=== PATIENT | female | born 1990 | race Caucasian/White ===

== ENCOUNTER → 2017-11-22 10:04 | Outpatient (CLI) | payer MEDICAID, SELFPAY ==
[2017-11-22 10:39] LABS: Hemoglobin 12.1 g/dl (12.0-15.0); Mean Corp Hgb Conc 33.6 g/gl (32-36); Mean Corpuscular Hgb 31.3 pg (27.0-32.0); Mean Corpuscular Volume 93.3 fL (81-99); Platelet Count 227 K/mm3 (150-450); RBC Distribution Width CV 13.9 % (11.6-14.6); RBC Distribution Width SD 46.4 fl (35.1-43.9); Red Blood Count 3.86 M/mm3 (4.2-5.4); White Blood Count 11.6 K/mm3 (4.4-11.0)
[2017-11-22 10:40] LABS: Scan Indicated on CBC? Y/N NO
[2017-11-22 10:56] LABS: Glucose Challenge Gest 1H 50g 157 mg/dL (70-140)
== END ==
PROVIDERS: Visit Provider Obstetrics & Gynecology
DX: Z34.82 Encounter for supervision of other normal pregnancy, second trimester (principal)
CPT/HCPCS: 36415; 82950; 85027

== ENCOUNTER → 2017-11-29 08:51 | Outpatient (CLI) | payer MEDICAID, SELFPAY ==
[2017-11-29 10:16] LABS: Glucose GTT-Gestation. Fasting 82 mg/dL (<105)
[2017-11-29 11:30] LABS: Glucose GTT-Gestational 1 Hr 156 mg/dL (<190)
[2017-11-29 11:59] LABS: Glucose GTT-Gestational 2 Hr 120 mg/dL (<165)
[2017-11-29 12:32] LABS: Glucose GTT-Gestational 3 Hr 102 L (<145)
== END ==
PROVIDERS: Family Provider Family Medicine; PCP Family Medicine; Visit Provider Obstetrics & Gynecology
DX: O24.912 Unspecified diabetes mellitus in pregnancy, second trimester (principal); Z3A.00 Weeks of gestation of pregnancy not specified
CPT/HCPCS: 36415; 82951; 82952

== ENCOUNTER → 2018-01-22 16:42 | Outpatient (CLI) | payer MEDICAID, SELFPAY ==
[2018-01-22 19:44] LABS: Group B Strep DNA By PCR Negative (Negative); Internal Control PASS; Probe Check PASS; Specimen Processing Control PASS
== END ==
PROVIDERS: Visit Provider Obstetrics & Gynecology
DX: Z36.85 Encounter for antenatal screening for Streptococcus B (principal)
CPT/HCPCS: 87081; 87653

== ENCOUNTER 2018-02-12 05:30 | Inpatient (IN) | payer MEDICAID, SELFPAY ==
[2018-02-06 09:14] VITALS: BMI 42.0
--- NOTE | 2018-02-12 05:30 | DT_ITS ---
This patient was seen during an EMR downtime February 12, 2018 - February 19, 2018. This patient may have a combination of paper and electronic documentation or all paper documentation. All documentation is viewable within the e-chart portion of [facility] for each patient visit.
[2018-02-15 17:03] LABS: Hematocrit 39.8 % (37-47); Hemoglobin 13.4 g/dl (12.0-15.0); Mean Corp Hgb Conc 33.7 g/gl (32-36); Mean Corpuscular Hgb 31.5 pg (27.0-32.0); Mean Corpuscular Volume 93.4 fL (81-99); Mean Platelet Vol. 11.3 fl (6.2-12.0); Platelet Count 183 K/mm3 (150-450); RBC Distribution Width CV 14.2 % (11.6-14.6); Red Blood Count 4.26 M/mm3 (4.2-5.4); Scan Indicated on CBC? Y/N NO; White Blood Count 12.4 K/mm3 (4.4-11.0)
[2018-02-15 17:04] LABS: International Normalized Ratio 0.9; Partial Thromboplast Time 28.5 Seconds (24.1-36.2); Prothrombin Time (Protime)PT. 11.8 SECONDS (11.7-14.9)
[2018-02-21 20:10] LABS: Hematocrit 36.2 % (37-47); Hemoglobin 11.8 g/dl (12.0-15.0); Mean Corp Hgb Conc 32.6 g/gl (32-36); Mean Corpuscular Hgb 30.9 pg (27.0-32.0); Mean Corpuscular Volume 94.8 fL (81-99); Mean Platelet Vol. 11.4 fl (6.2-12.0); Platelet Count 182 K/mm3 (150-450); RBC Distribution Width CV 14.4 % (11.6-14.6); RBC Distribution Width SD 47.4 fl (35.1-43.9); Red Blood Count 3.82 M/mm3 (4.2-5.4); Scan Indicated on CBC? Y/N NO; White Blood Count 14.9 K/mm3 (4.4-11.0)
--- NOTE | 2018-02-22 13:46 | CASEMGMT ---
Social Work Note Labor and Delivery Unit Hospital downtime protocols in place during this patient's hospital stay. A social work assessment was completed. Assessment handwritten as per downtime protocols, sent to medical records to be scanned into patient's chart. -MARY Conway, GAGE DESIGNER
== END 2018-02-14 10:05 | disposition home or self-care (01) | DRG 371 ==
PROVIDERS: Admitting Provider Obstetrics & Gynecology; Family Provider Family Medicine; PCP Family Medicine; Visit Provider Obstetrics & Gynecology
PROC: 10D00Z1 Extraction of Products of Conception, Low, Open Approach (ICD-10-PCS; CPT 59514; principal; 2018-02-12 07:15)
DX: O34.211 Maternal care for low transverse scar from previous cesarean delivery (principal); Z3A.39 39 weeks gestation of pregnancy; Z37.0 Single live birth
CPT/HCPCS: 59025; 59050; 85027; 85610; 85730; 86850; 86900; 87081; 87653; 99218; J7120; A4216; G0378; J2405

== ENCOUNTER → 2018-02-27 15:40 | Outpatient (CLI) | payer MEDICAID, SELFPAY | PROVIDERS: Visit Provider Obstetrics & Gynecology | DX: R19.7 Diarrhea, unspecified (principal) | CPT/HCPCS: 87493 ==

== ENCOUNTER → 2018-04-06 14:47 | Outpatient (CLI) | payer MEDICAID, SELFPAY ==
[2018-04-06 16:31] LABS: Progesterone Level 1.03 ng/mL (See Comment)
[2018-04-06 16:39] LABS: Pregnancy, Serum, hCG Quali. NEGATIVE Negative (0-9 Nonpreg)
== END ==
PROVIDERS: Visit Provider Obstetrics & Gynecology
DX: Z30.430 Encounter for insertion of intrauterine contraceptive device (principal)
CPT/HCPCS: 36415; 84144; 84703

== ENCOUNTER → 2018-04-09 16:16 | Outpatient (CLI) | payer MEDICAID, SELFPAY ==
[2018-04-09 19:56] LABS: Chlamydia Trachomatis by PCR Negative (Negative); Neisserai gonorrhoeae by PCR Negative (Negative); Probe Check PASS; Sample Adequacy Control PASS; Specimen Processing Control PASS
== END ==
PROVIDERS: Family Provider Family Medicine; PCP Family Medicine; Visit Provider Obstetrics & Gynecology
DX: Z11.3 Encounter for screening for infections with a predominantly sexual mode of transmission (principal)
CPT/HCPCS: 87491; 87591

== ENCOUNTER → 2018-06-01 14:44 | Outpatient (CLI) | payer MEDICAID, SELFPAY ==
[2018-06-01 15:50] LABS: Absolute Lymphocyte Count 1.86 X10^3/ul (0.83-4.51); Absolute Neutrophil Count 7.4 X10^3/uL (2.0-7.7); Basophil# 0.03 X10^3/uL; Basophil% 0.3 % (0-1); Eosinophil# 0.17 X10^3/uL; Eosinophils% 1.7 % (0-5); Hematocrit 43.6 % (37-47); Hemoglobin 14.2 g/dl (12.0-15.0); Lymphocyte # 1.86 X10^3/ul (4.0); Lymphocyte % 18.7 % (19-41); Mean Corp Hgb Conc 32.6 g/gl (32-36); Mean Corpuscular Hgb 29.9 pg (27.0-32.0); Mean Corpuscular Volume 91.8 fL (81-99); Mean Platelet Vol. 10.5 fl (6.2-12.0); Neutrophil # 7.39 X10^3/uL (2.7-7.7); Neutrophil % 74.2 % (47-70); Platelet Count 284 K/mm3 (150-450); RBC Distribution Width CV 13.3 % (11.6-14.6); Red Blood Count 4.75 M/mm3 (4.2-5.4)
[2018-06-01 15:53] LABS: POSITIVE COUNT NO; POSITIVE DIFFERENTIAL NO; POSITIVE MORPHOLOGY NO
== END ==
PROVIDERS: Family Provider Family Medicine; PCP Family Medicine; Visit Provider Family Medicine
DX: T14.8XXA Other injury of unspecified body region, initial encounter (principal)
CPT/HCPCS: 36415; 85025

== ENCOUNTER → 2018-07-05 12:18 | Outpatient (CLI) | payer MEDICAID, SELFPAY ==
--- NOTE | 2018-07-05 12:22 | RAD_ITS ---
STUDY: X-RAY - LEFT FOOT CLINICAL: Female, 28 years old. Pain. TECHNIQUE: 3 view(s) of the foot. COMPARISON: None. FINDINGS: Normal talus, calcaneus, and tarsal bones. Normal visualized subtalar, talonavicular, calcaneocuboid, tarsal and tarsometatarsal articulations. Normal metatarsi. Normal metatarsophalangeal joint of the great toe. Normal tibial and fibular sesamoid bones. Normal interphalangeal joint of the great toe. Normal phalanges of the great toe. Normal second through fifth metatarsophalangeal joints. Normal interphalangeal joints and phalanges of the lesser toes. The soft tissue structures are unremarkable. There is no demonstrated fracture. RAD/Foot min 3 Views IMPRESSION: Normal x-ray examination of the foot. Electronically Signed: Ousmane Brar MD at 20:19 EDT , Service support ,
== END ==
PROVIDERS: Family Provider Family Medicine; PCP Family Medicine; Referring Provider Family Medicine; Visit Provider Family Medicine
DX: M79.672 Pain in left foot (principal)
CPT/HCPCS: 73630

== ENCOUNTER → 2018-07-17 16:32 | Outpatient (CLI) | payer MEDICAID, SELFPAY ==
--- NOTE | 2018-07-17 16:35 | RAD_ITS ---
STUDY: X-RAY - LEFT FOOT CLINICAL: Female, 28 years old. Also weeks ago in steel toed shoes, pain across 2nd-5th metatarsophalangeal joints. TECHNIQUE: 3 view(s) of the foot. COMPARISON: 07/05/2018 FINDINGS: Normal talus, calcaneus, and tarsal bones. Normal visualized subtalar, talonavicular, calcaneocuboid, tarsal and tarsometatarsal articulations. Normal metatarsi. Normal metatarsophalangeal joint of the great toe. Normal tibial and fibular sesamoid bones. Normal interphalangeal joint of the great toe. Normal phalanges of the great toe. Normal second through fifth metatarsophalangeal joints. Normal interphalangeal joints and phalanges of the lesser toes. The soft tissue structures are unremarkable. RAD/Foot min 3 Views IMPRESSION: Normal x-ray examination of the foot. There is no significant interval change. Electronically Signed: Janae Mtz MD at 5:33 EST , Service support ,
== END ==
PROVIDERS: Family Provider Family Medicine; PCP Family Medicine; Referring Provider Family Medicine; Visit Provider Family Medicine
DX: M79.672 Pain in left foot (principal); Z91.81 History of falling
CPT/HCPCS: 73630

== ENCOUNTER → 2019-02-13 | Outpatient (CLI) | payer MEDICAID, SELFPAY ==
[2019-02-13 14:37] LABS: Cholesterol 166 mg/dL (200); High Density Lipoprotein 44 mg/dL; Thyroid Stim Hormone (TSH) 2.25 uIU/mL (0.358-3.74); Triglycerides 57 mg/dL; Very Low Density Lipoprotein 11 mg/dL (5-40)
== END | disposition home or self-care (01) ==
LOC: MFPLAB 11:28
PROVIDERS: Family Provider Family Medicine; PCP Family Medicine; Referring Provider Family Medicine; Visit Provider Family Medicine
DX: Z00.00 Encounter for general adult medical examination without abnormal findings (principal); E03.9 Hypothyroidism, unspecified
CPT/HCPCS: 36415; 80061; 84443

== ENCOUNTER → 2019-11-13 | Outpatient (CLI) | payer MEDICAID, SELFPAY ==
[2019-11-18 19:27] LABS: HPV Reflexed? NOT INDICATED
== END | disposition home or self-care (01) ==
LOC: LABSPEC 13:23
PROVIDERS: PCP Family Medicine; Visit Provider Obstetrics & Gynecology
DX: Z12.4 Encounter for screening for malignant neoplasm of cervix (principal)
CPT/HCPCS: 88175; G0145

== ENCOUNTER → 2020-09-14 11:48 | Outpatient (CLI) | payer MEDICAID, SELFPAY ==
--- NOTE | 2020-09-14 11:52 | RAD_ITS ---
STUDY: X-RAY - RIGHT KNEE REASON FOR EXAM: Right knee pain, injury. TECHNIQUE: 4 view(s) of the knee. COMPARISON: None. FINDINGS: Normal visualized distal femur. Normal visualized proximal tibia and fibula. Normal proximal tibiofibular articulation. Normal medial femorotibial compartment. Normal lateral femorotibial compartment. Normal patellofemoral articulation. There is a small joint effusion. RAD/Knee 4 or More Views IMPRESSION: Small joint effusion. Electronically Signed: Boni Flower MD at 12:44 EST Tel , Service support ,
== END ==
PROVIDERS: PCP Family Medicine; Referring Provider Family Medicine; Visit Provider Family Medicine
DX: S89.90XA Unspecified injury of unspecified lower leg, initial encounter (principal)
CPT/HCPCS: 73564

== ENCOUNTER → 2021-06-30 | Outpatient (CLI) | payer MEDICAID, SELFPAY ==
[2021-07-05 15:21] LABS: HPV Reflexed? NOT INDICATED
== END | disposition home or self-care (01) ==
LOC: LABSPEC 15:32
PROVIDERS: PCP Family Medicine; Visit Provider Obstetrics & Gynecology
DX: Z12.4 Encounter for screening for malignant neoplasm of cervix (principal)
CPT/HCPCS: 88175; G0145

== ENCOUNTER 2021-11-26 10:44 | Outpatient (CLI) | payer MEDICAID, SELFPAY ==
[2021-11-26 12:28] LABS: Erythrocyte Sedimentation Rate 13 mm/hr (0-30)
[2021-11-26 12:59] LABS: Anion Gap 3 (5-15); BUN 11 mg/dL (7-18); BUN/Creat Ratio 13.2 RATIO (10-20); CRP < 2.90 mg/L (0.0-3.0); Calcium,Total 9.6 mg/dL (8.5-10.1); Chloride 111 mmol/L (98-107); Cholesterol 197 mg/dL (200); Creatinine, Serum 0.83 mg/dL (0.55-1.02); EST Glomerular Filtration Rate 84 mL/min (>60); Est Glom Filt Rate - Afr Amer 102 mL/min (>60); Glucose 105 mg/dL (74-106); High Density Lipoprotein 51 mg/dL; Potassium 3.9 mmol/L (3.5-5.1); Sodium Level 137 mmol/L (136-145); Triglycerides 50 mg/dL; Very Low Density Lipoprotein 10 mg/dL (5-40)
[2021-11-28 15:38] LABS: ANTINUCLEAR ANTIBODIES DIRECT Negative (Negative)
== END 2021-11-26 23:59 | disposition home or self-care (01) ==
LOC: MFPLAB 10:46
PROVIDERS: PCP Family Medicine; Referring Provider Family Medicine; Visit Provider Family Medicine
DX: Z00.00 Encounter for general adult medical examination without abnormal findings (principal); M79.641 Pain in right hand; M79.642 Pain in left hand
CPT/HCPCS: 36415; 80048; 80061; 85652; 86038; 86140

== ENCOUNTER → 2022-03-23 | Outpatient (CLI) | payer MEDICAID, SELFPAY ==
[2022-03-23 13:01] LABS: Thyroid Stim Hormone (TSH) 4.01 uIU/mL (0.358-3.74)
== END | disposition home or self-care (01) ==
LOC: MFPLAB 10:31
PROVIDERS: PCP Family Medicine; Referring Provider Family Medicine; Visit Provider Family Medicine
DX: F32.A Depression, unspecified (principal)
CPT/HCPCS: 36415; 84443

== ENCOUNTER → 2022-11-16 | Outpatient (CLI) | payer MEDICAID, SELFPAY ==
--- NOTE | 2022-11-16 | BI_ITS ---
MAMMOGRAPHY - BILATERAL DIAGNOSTIC REASON FOR EXAM: Female, 32 years old. PAIN PERTINENT HISTORY: Non-contributory. TECHNIQUE: Digital examination. Mediolateral oblique (MLO) and craniocaudad (CC) views of both breasts were obtained. CAD: COMPARISON: None. FINDINGS: Breast Composition: The breasts are heterogeneously dense, which may obscure small masses. There are no dominant masses or suspicious calcifications. No other significant abnormalities are identified. BI/DIAG MAMM W/CAD, BILAT IMPRESSION: Stable bilateral diagnostic mammogram. ASSESSMENT CATEGORY: BIRADS Category 1: Negative. A letter regarding these results will be sent to the patient by the facility within 30 days. FOLLOW UP RECOMMENDATION: Yearly follow up mammogram recommended. (A) Approximately 10% of breast cancers are not detected by mammography. A normal mammogram should not delay biopsy of a clinically suspicious abnormality. Electronically Signed: David Garcia MD at 14:46 EST ,
== END | disposition home or self-care (01) ==
PROVIDERS: PCP Family Medicine; Visit Provider Student in an Organized Health Care Education/Training Program
DX: N64.4 Mastodynia (principal)
CPT/HCPCS: 77062; 77066; G0279

== ENCOUNTER → 2023-10-17 | Outpatient (CLI) | payer MEDICAID, SELFPAY ==
[2023-10-17 13:36] LABS: Free T3 2.5 pg/mL (2.18-3.98); T4 Free Direct 0.85 ng/dL (0.76-1.46); Thyroid Stim Hormone (TSH) 4.25 uIU/mL (0.358-3.74)
--- OUTSIDE RECORDS SUMMARY | 2023-10-17 13:53 | XMS RPT_ITS | CCD ---
Author Name Unknown Address [address] [place] [address] Organization [facility] Care Team Providers Care Gambreler Helper Name Role Phone [place] WILKINS, Bob Desai Primary Care Provider 1( [phone] Medications Current Medications Medication Drug Class(es) Dates Sig (Normalized) Sig (Original) nitrofurantoin, macrocrystals 25 mg / nitrofurantoin, monohydrate 75 mg oral capsule (1 source) Nitrofuran Antibacterial Start: 05-28-2023 End: 06-02-2023 take 1 capsule by mouth twice daily nitrofurantoin monohydrate and macrocrystal (MACROBID) 100 mg capsule Indications: Acute cystitis without hematuria Take 1 capsule by mouth twice daily for 5 days. 10 capsule 0 05/28/2023 06/02/2023 Active Completed/Discontinued Medications Medication Drug Class(es) Dates Sig (Normalized) Sig (Original) 24 hr buPROPion hydrochloride 150 mg extended release oral tablet (4 sources) Aminoketone take 1 tablet by th twice daily buPROPion XL (WELLBUTRIN XL) 150 mg 24 hr tablet Take 150 mg by mouth twice daily. 0 Active Problems Problem Classification Problem Date Documented Da te Episodic/Chronic Mood disorders (4 sources) Depressive disorder; Translations: [Depressive disorder] Onset: 04-25-2016 04-25-2016 Chronic Other circulatory disease (1 source) Abnormal peripheral pulse; Translations: [Other specified symptoms and signs involving the circulatory and respiratory systems] Episodic Other skin disorders (1 source) Ingrowing nail of toe of right foot; Translations: [Ingrowing nail] Episodic Residual codes; unclassified (2 sources) Pain; Translations: [Pain, unspecified] Episodic Urinary tract infections (1 source) Acute cystitis; Translations: [Acute cystitis without hematuria] 05-28-2023 Episodic Results Test Name Value Interpretation Reference Range Facil ity Encounters Encounter Date Encounter Type Care Provider Facility Start: 05-28-2023 End: 05-28-2023 ambulatory Peace Schrader APRN.CNP Work Phone: Telemedicine Procedures Date Procedure Procedure Detail Performing Clinician Start: 04-20-2022 Radex foot complete minimum 3 views Ministerio Elizabeth Work Phone: Plan of Treatment Date Care Activity Detail Author Start: 05-12-2023 Influenza vaccination Influenza Vaccine (#1) [facility] Start: 05-12-2022 Influenza vaccination INFLUENZA (#1) [facility] Start: 01-13-2020 HPV TESTING HPV TESTING [facility] Start: 2011 PAP TESTING PAP TESTING [facility] Start: 2009 Urine microalbumin profile [facility] Start: 01-13-2008 HEPATITIS C SCREENING HEPATITIS C SCREENING [facility] Start: 01-13-2008 HIV SCREENING HIV SCREENING [facility] Start: 2002 Adult depression screening assessment DEPRESSION SCREENING [facility] Start: 01-13-1996 PNEUMOCOCCAL (1 - PCV) PNEUMOCOCCAL (1 - PCV) [facility] Start: 01-13-1996 Pneumococcal vaccination Pneumococcal Vaccine (1 - PCV) [facility] Start: 1990 COVID-19 VACCINE (#1) COVID-19 VACCINE (#1) [facility] Start: 1990 HEPATITIS B (1 of 3 - 3-dose series) HEPATITIS B (1 of 3 - 3-dose series) [facility] Start: 1990 Hepatitis B Vaccine (1 of 3 - 3-dose series) Hepatitis B Vaccine (1 of 3 - 3-dose series) [facility] End: 04-20-2023 PVR ANK PRESS [facility] PVR ANK PRESS [facility] Vascular Lab Routine Ingrowing toenail of right foot Diminished pulses in lower extremity 1 Occurrences starting 04/20/2022 until 04/20/2023 [facility] Work Phone: Immunizations Immunization Date Immunization Notes Care Provider Fa maximus 07-05-2018 influenza virus vacc ine, unspecified formulation Peace Schrader APRN.CNP Work Phone: [facility] Payers Date Payer Category Payer Medicaid [employer] [id number] 2016-Present [phone] [address] [place] [address] Medicaid [id number] 2016 Medicaid [id number] Social History Date Type Detail Facility Start: 03-09-2019 End: 04-20-2022 Tobacco smoking status NHIS Smokes tobacco daily [facility] End: 07-07-2016 History of tobacco use Smoker [facility] Start: 03-09-2019 End: 04-20-2022 Tobacco use and exposure Smokeless tobacco non-user [facility] Start: 03-09-2019 End: 04-20-2022 Alcohol intake Current drinker of alcohol (finding) [facility] Start: 04-25-2016 History SDOH Alcohol Comment rare [facility] Start: 1990 Sex Assigned At Not on file [facility] End: 07-07-2016 History of tobacco use Cigarette Smoker [facility] Start: 08-16-2020 End: 04-20-2022 Cigarettes smoked current (pack per day) - Reported 0.3 [facility] Start: 04-10-2022 End: 04-20-2022 Exposure to SARS-CoV-2 (event) Not sure [facility] Start: 08-16-2020 End: 04-20-2022 Tobacco use panel [facility] National Score (1-10 0), lower number is lower risk Not on file [facility] Clinical Notes 04-20-2022 to 05-28-2023 Peace Schrader APRN.CNP - 05/28/2023 3:26 PM Jocelyne Elizabeth - 04/20/2022 9:03 AM Fuad Jeff RN - 04/20/2022 8:36 AM RT Melisa(R) - 04/20/2022 8:10 AM EDT Note Date & Type Note Facility 05-28-2023 Note HNO ID: [id number] Author: Peace Schrader APRN.CNP Service: ? Author Type: Nurse Practitioner Type: Progress Notes Filed: 05/28/2023 3:30 PM Note Text: This is an Express Care eVisit note for Isacc Butts eVisit/Questionnaire reviewed The chief complaint for the visit - Patient presents with: Dysuria Recommendations/Treatment plan - Rx as below plus self care. See My Chart Message to patient. Recommendation for follow up - PRN Time spent: 5-10 minutes The following approved medication requests have been transmitted electronically. Requested Prescriptions Signed Prescriptions Disp Refills nitrofurantoin monohydrate and macrocrystal (MACROBID) 100 mg capsule 10 capsule 0 Sig: Take 1 capsule by mouth twice daily for 5 days. Peace Schrader APRN.CNP ie ROXANE Schrader [facility] 05-28-2023 History of Present illness Narrative This is an Express Care eVisit note for Isacc Benjamín Salvadorit/Questionnaire reviewed The chief complaint for the visit - Patient presents with: Dysuria Recommendations/Treatment plan - Rx as below plus self care. See My Chart Message to patient. Recommendation for follow up - PRN Time spent: 5-10 minutes The following approved medication requests have been transmitted electronically. Requested Prescriptions Signed Prescriptions Disp Refills nitrofurantoin monohydrate and macrocrystal (MACROBID) 100 mg capsule 10 capsule 0 Sig: Take 1 capsule by mouth twice daily for 5 days. Peace Schrader APRN.CNP ie ROXANE Schrader documented in this encounter [facility] 04-20-2022 History of Present illness Narrative Consultation requested by Dr. Florez for an opinion regarding pain in right great toe. My final recommendations will be communicated back to the requesting physician by way of shared Medical record or letter to requesting physician via US mail. Initial Podiatric Office Visit: Chief Complaint: This 32 year old female who presents with chief complaint:right great toe pain HPI Patient presents to clinic for evaluation of right foot. She complains of pain in the tip of her right great toe. The pain has been present for a few months. 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 She states that over the past few months, she has been having more pain with walking. She states she has a thick nail as a result of the injury and she wonders if the nail is part of the issue. PAIN EVALUATION 04/20/2022 0837 Pain Level: 6 Pain Location: Toe Description: Sharp;Burning Duration Amount of Time: 2 Duration Units: Months Frequency: Intermittent Intervention/Comfort measure: Reposition;Relaxation No results found for: HBA1C PCP: Bob Florez MD, MD PAST MEDICAL HISTORY Diagnosis Date Depressive disorder 04/25/2016 Psoriasis Recurrent genital HSV (herpes simplex virus) infection Seasonal allergies Current Outpatient Medications Medication Sig topiramate (TOPAMAX) 50 mg tablet Take 50 mg by mouth twice daily. levothyroxine 25 mcg cap Take 25 mcg by mouth daily before breakfast. buPROPion XL (WELLBUTRIN XL) 150 mg 24 hr tablet Take 150 mg by mouth twice daily. sertraline (ZOLOFT) 50 mg tablet Take 50 mg by mouth once daily. omeprazole (PRILOSEC) 20 mg capsule Take 20 mg by mouth as needed. No current facility-administered medications for this visit. 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 Rt foot great toe KNEE ARTHROSCOPY 2002 Right FAMILY HISTORY Problem Relation Age of Onset Diabetes Father Hypertension Father Lipids Father Thyroid Mother Cancer Maternal Grandmother breast Social History Tobacco Use Smoking status: Every Day Packs/day: 0.25 Types: Cigarettes Last attempt to quit: 07/07/2016 Years since quittin.7 Smokeless tobacco: Never Substance Use Topics Alcohol use: Yes Comment: rare Drug use: No REVIEW OF SYSTEMS GENERAL: Negative for Malaise, significant weight loss, fever RESPIRATORY: Negative for cough, wheezing and shortness of breath CARDIOVASCULAR: Negative for chest pain, leg swelling and palpitations GI: Negative for abdominal discomfort, blood in stools or black stools and change in bowel habits : Negative for dysuria, frequency and incontinence MUSCULOSKELETAL: + pain in right great toe SKIN: + nail deformity of right hallux HEMATOLOGY/LYMPHOLOGY Negative for prolonged bleeding, bruising easily, and swollen nodes. ENDOCRINE: Negative for cold or heat intolerance, polyuria, polydipsia and goiter. NEURO: negative Physical Exam: Constitutional: Pt is a well developed 32 year old female who is alert, oriented and cooperative Eyes: Following during examination. No redness or drainage. Respiratory: RR normal and nonlabored. Even breathing. No evidence of distress or shortness of breath. Psychology: Patient is engaged during conversation. Normal affect and mood. Does not appear depressed or anxious during encounter. Vascular: Dorsalis pedis and posterior tibial pulses faintly palpable as b/l Capillary Fill time < 5 seconds to digits 1-5 b/l Skin temperature warm to cool proximal to distal b/l Hair growth absent Neurological: intact light touch/epicritic sensation Dermatological: Right hallux medial and lateral nail borders are thick and incurvated. No signs of infection. Right hallux centrally has no nail plate. Webspaces clean and dry 1-4 b/l. Skin appears well hydrated and supple. good color, texture, turgor. No open lesions present. Porokeratosis present to right medial arch. Callus present to left hallux Musculoskeletal/Orthopaedic: Patient has pain to palpation of right hallux toenail Foot type is neutral structurally AJ ROM is full with knee extended and flexed 1st MPJ is full when loaded and no pain or crepitus are noted with ROM. MTJ, STJ are full and free of pain and crepitus. +5/5 muscle strength dorsiflexion, plantarflexion, inversion, eversion b/l Irregularity is noted of right hallux distal tuft at site of prior toe amputation Radiographs: 3 views right foot ordered April 20, 2022: I have personally reviewed and interpreted these XR myself: partial amputation of right hallux distal tuft ASSESSMENT: (L60.0) Ingrowing toenail of right foot (primary encounter diagnosis) (R09.89) Diminished pulses in lower extremity porokeratosis PLAN: 1. History and physical examination performed. 2. XR reviewed with patient and interpreted today 3. I do feel part of this patient's pain is nail deformity. We discussed performing matrixectomy. I will obtain pvr prior to removal as patient has history of smoking. 4. Discussed revised amputation. She elected to hold on this. 5. Porokeratosis debrided today with 15 blade to right foot. Tca applied under occlusion. 6. Callus lightly debrided to left foot with 15 blade. In order to perform a complete physical exam, limited shaving of callus area was performed. This incidental service is integral to the evaluation and management visit in order to appropriately manage and treat the patient (for their complaint or for this visit). 7. Will call with results. Ministerio Elizabeth DPM Podiatry [address] [place] [address] Dept: [phone] Dept AMB ROOMING INTAKE FLOWSHEET DATA Risk Screening Do you have concerns about personal safety or safety in the home?: No Pain Pain Level: 6 Pain Location: Toe Description: Sharp, Burning Duration Amount of Time: 2 Duration Units: Months Frequency: Intermittent Intervention/Comfort measure: Reposition, Relaxation Patient presents with: Right Great Toe - New Patient, Pain Patient c/o pain to R hallux. Occurs with increased activity. 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 Reports old injury to toe - geovany guzman ran over toe when she was 7. Also c/o corn to R foot. documented in this encounter [facility] 04-20-2022 History of Present illness Narrative Radiology Service Progress Note PATIENT NAME: Isacc Butts DATE OF SERVICE: April 20, 2022 TIME: 8:10 AM PATIENT IDENTITY VERIFICATION COMPLETED USING TWO (2) IDENTIFIERS: Name and Date of confirmed by patient verbally. FALL SCREENING: Has the patient had 2 falls in the last year or 1 fall with injury or currently using an Ambulatory Assistive Device (Walker, Cane, Wheelchair, Crutches, etc.)? No PATIENT GENDER DATA: Female. status: : No status: NO. PATIENT RELEVANT IMPLANT DATA REVIEWED: Not Applicable RADIOLOGY DEPARTMENT: General X-ray: Exam(s) Completed: Lower Extremity X-Ray(s): Foot, Right and Wt. Bearing PERIPHERAL IV DATA: Not applicable SIGNED BY: RT Mallory(R) April 20, 2022 8:10 AM documented in this encounter [facility] Diagnosis Ingrowing toenail of right foot- Primary Ingrowing nail Diminished pulses in lower extremity Other symptoms involving cardiovascular system [facility] Pain Generalized pain [facility] Diagnosis Acute cystitis without hematuria- Primary Acute cystitis documented in this encounter [facility] for referral (narrative)* Diagnostic Procedure Only (Routine) - Authorized Specialty Diagnoses / Procedures Referred By Contac t Referred To Contact XR IMAGING Diagnoses Pain Procedures XR FOOT GENERAL 3V AP/LAT/OBL RIGHT RADEX FOOT COMPLETE MINIMUM 3 VIEWS Ministerio Elizabeth[address] [place] [address] Xr Imaging Referral ID Status Reason Start Date Expiration Date Visits Requested Visits Authorized [id number] Authorized Auto-Generat ed Referral 04/07/2022 05/07/2023 1 1 [facility] for referral (narrative)* Outpatient Procedure (Routine) - Authorized Specialty Diagnoses / Procedures Referred By Contac t Referred To Contact [facility] Diagnoses Ingrowing toenail of right foot Diminished pulses in lower extremity Procedures PVR ANK PRESS [facility] NON-INVAS PHYSIOLOGIC STD EXTREMITY ART 2 LEVEL Ministerio Elizabeth [place] [address] [address] [facility] [address] [place] [address] Referral ID Status Reason Start Date Expiration Date Visits Requested Visits Authorized [id number] Authorized Auto-Generat ed Referral 04/20/2022 04/20/2023 1 1 [facility] for referral (narrative)* Diagnostic Procedure Only (Routine) - Closed Specialty Diagnoses / Procedures Referred By Contac t Referred To Contact XR IMAGING Diagnoses Pain Procedures XR FOOT GENERAL 3V AP/LAT/OBL RIGHT RADEX FOOT COMPLETE MINIMUM [address] [address] Xr Imaging Referral ID Status Reason Start Date Expiration Date V isits Requested Visits Authorized [id number] Closed Auto-Generate d Referral 04/07/2022 05/07/2023 1 1 [facility] for visit Narrative* Diagnostic Procedure Only (Routine) - Closed Specialty Diagnoses / Procedures Referred By Contac t Referred To Contact XR IMAGING Diagnoses Pain Procedures XR FOOT GENERAL 3V AP/LAT/OBL RIGHT RADEX FOOT COMPLETE MINIMUM 3 VIEWS Ministerio Elizabeth [address] [place] [address] Xr Imaging Referral ID Status Reason Start Date Expiration Date V isits Requested Visits Authorized [id number] Closed Auto-Generate d Referral 04/07/2022 05/07/2023 1 1 [facility] Summary Purpose Family History No Family History Records Found Advance Directives No Advanced Directives Records Found Additional Source Comments Source Comments (unrecognize d section and content) In the event this informatio n is protected by the Federal Confidentiality of Alcohol and Drug Abuse Patient Records regulations: The Federal rules restrict any use of the information to criminally investigate or prosecute any alcohol or drug abuse patient.[facility] the event this information is protected by the Federal Confidentiality of Alcohol and Drug Abuse Patient Records regulations: The Federal rules restrict any use of the information to criminally investigate or prosecute any alcohol or drug abuse patient.[facility] the event this information is protected by the Federal Confidentiality of Alcohol and Drug Abuse Patient Records regulations: The Federal rules restrict any use of the information to criminally investigate or prosecute any alcohol or drug abuse patient.[facility] the event this information is protected by the Federal Confidentiality of Alcohol and Drug Abuse Patient Records regulations: The Federal rules restrict any use of the information to criminally investigate or prosecute any alcohol or drug abuse patient.[facility] Care Teams (unrecognized sec tion and content) Gambreler Helper Relationship Specialty Start Date End Date Bob Florez MD PCP - General Family Practice 08/23/16 Gambreler Helper Relationship Specialty Start Date End Date Bob Florez MD PCP - General Family Practice 08/23/16 Gambreler Helper Relationship Specialty Start Date End Date Bob Florez MD PCP - General Family Medicine 08/23/16 Reason for Visit (unrecogniz ed section and content) Reason Comments Dysuria INFORMATION SOURCE (unrecogn ized section and content) FOR RECORDS PERTAINING TO PATIENTS WHO ARE OR HAVE BEEN ENROLLED IN A CHEMICAL DEPENDENCY/SUBSTANCEABUSE PROGRAM, SOME INFORMATION MAY BE OMITTED. This clinical summary was aggregated from multiple sources. Caution should be exercised in using it in the provision of clinical care. This summary normalizes information from multiple sources, and as a consequence, information in this document may materially change the coding, format and clinical context of patient data. In addition, data may be omitted in some cases. CLINICAL DECISIONS SHOULD BE BASED ON THE PRIMARY CLINICAL RECORDS. [employer] [facility]. provides no warranty or guarantee of the accuracy or completeness of information in this document.
== END | disposition home or self-care (01) ==
LOC: LAB 11:13
PROVIDERS: PCP Family Medicine; Referring Provider Student in an Organized Health Care Education/Training Program; Visit Provider Student in an Organized Health Care Education/Training Program
DX: F41.1 Generalized anxiety disorder (principal)
CPT/HCPCS: 36415; 84439; 84443; 84481

== ENCOUNTER → 2025-07-10 | Outpatient (CLI) | payer BC, SELFPAY ==
[2025-07-15 16:09] LABS: HPV APTIMA, High Risk Negative (Negative)
== END | disposition home or self-care (01) ==
PROVIDERS: PCP Family Medicine; Visit Provider Nurse Practitioner Family
DX: N89.8 Other specified noninflammatory disorders of vagina (principal); Z12.4 Encounter for screening for malignant neoplasm of cervix
CPT/HCPCS: 36415; 86695; 86696; 87624; 88175; G0145

== ENCOUNTER → 2025-07-29 | Outpatient (CLI) | payer BC, SELFPAY ==
--- NOTE | 2025-07-29 08:01 | US_ITS ---
PROCEDURE: PELVIC W/ TRANSVAGINAL 07/29/2025 REASON FOR EXAM: IUD STRING CHECK TECHNIQUE: Procedure Code: [id number] Modality: US Procedure: PELVIC W/ TRANSVAGINAL COMPARISON: None. FINDINGS: ENDOMETRIUM: Homogeneous. Normal thickness 3.0 mm. Intrauterine device (IUD) located within the endometrial cavity at the fundus. UTERUS: Anteverted. Normal size and contour measuring 9.0 x 4.4 x 5.6 cm. No fibroid detected. CERVIX: Normal size and contour. RIGHT OVARY: Normal size and appearance measuring 3.2 x 1.7 x 2.0 cm (volume 5.6 mL). Normal follicles. Normal blood flow. No adnexal mass. LEFT OVARY: Normal size and appearance measuring 3.3 x 1.9 x 2.1 cm (volume 7.0 mL). Normal follicles. Normal blood flow. No adnexal mass. FREE FLUID: No free fluid. OTHER: Urinary bladder volume of 283 mL. US/Pelvic w/ Transvaginal IMPRESSION: IUD in-situ. Reading Location: [id number]
== END | disposition home or self-care (01) ==
LOC: OPUS 08:00
PROVIDERS: PCP Family Medicine; Referring Provider Nurse Practitioner Family; Visit Provider Nurse Practitioner Family
DX: Z30.430 Encounter for insertion of intrauterine contraceptive device (principal)
CPT/HCPCS: 76830; 76856